=== PATIENT | female | born 1975 | race Two or more races ===

== ENCOUNTER 2017-10-02 15:37 | Emergency (ER) | payer OTHER ==
[2017-10-02 15:43] VITALS: BP 147/82; PULSE 110; RESP 18; TEMP 98.6; O2SAT 96
--- NOTE | 2017-10-02 16:14 | EDPHY ---
H & P Stated Complaint: cough 2 weeks, body aches, ROSEN, not sleeping HPI/ROS: CHIEF COMPLAINT: Cough, sore throat, myalgias HISTORY OF PRESENT ILLNESS: This is a 42-year-old female with a history of hypertension who presents with 2 weeks of nonproductive cough. She has not had fever. She reports sore throat, bilateral ear discomfort, and myalgias. She did not have a flu vaccination this year. She does not feel short of breath. She does have some back and chest discomfort when coughing. No sinus drainage. No headache at present. REVIEW OF SYSTEMS: A ten point review of systems was performed and is negative with the exception of the items mentioned in the HPI. Past medical history: Hypertension Social history: She is here with her daughter. General Appearance: Alert. Vital signs reviewed. Heart rate 110 at triage. Blood pressure 147/82. Eyes: Pupils equal and round, no conjunctival injection, no discharge. Anicteric. ENT, Mouth: Mucous membranes are moist, mild oropharyngeal erythema without edema or exudate. Tympanic membranes normal bilaterally. No sinus tenderness. Neck: No lymphadenopathy, supple. Respiratory: Lungs are clear to auscultation; no wheezes, rales, or rhonchi. Cardiovascular: Regular rate and rhythm; no murmur, rub, or gallop. Not tachycardic at time of my exam. Gastrointestinal: Abdomen is soft and nontender, no masses or organomegaly, bowel sounds normal. Skin: Warm and dry, no rashes on exposed skin, normal color. Back: Nontender to palpation over the thoracolumbar spine. No CVAT. Extremities: No lower extremity edema, no calf tenderness or swelling. Neurological: Alert and oriented. Moving all four extremities easily and equally. Psychiatric: Normal affect. - Personal History LMP (Females 10-55): 8-14 Days Ago Current Tetanus/Diphtheria Vaccine: Unsure Current Tetanus Diphtheria and Acellular Pertussis (TDAP): Unsure - Medical/Surgical History Hx Asthma: No Hx Chronic Respiratory Disease: No Hx Diabetes: No Hx Cardiac Disease: No Hx Renal Disease: No Hx Cirrhosis: No Hx Alcoholism: No Hx HIV/AIDS: No Hx Splenectomy or Spleen Trauma: No Other PMH: HTN/APPY, - Social History Smoking Status: Never smoked Constitutional: Initial Vital Signs Temperature (C) 37.0 C 10/02/17 15:39 Heart Rate 110 H 10/02/17 15:39 Respiratory Rate 18 10/02/17 15:39 Blood Pressure 147/82 H 10/02/17 15:39 O2 Sat (%) 96 10/02/17 15:39 O2 Delivery Mode Room Air Allergies/Adverse Reactions: No Known Allergies Allergy (Unverified 10/02/17 15:43) Home Medications: Medication Instructions Recorded HYDROcodone/HOMATROPINE HYCODA 1 tsp PO Q4-6PRN PRN #120 ml 10/02/17 [Hycodan Syrup (*)] Htn Medication 10/02/17 Medical Decision Making ED Course/Re-evaluation: Viral syndrome in 42-year-old female. There is not much benefit in testing for influenza as she has had this illness for 2 weeks now and antiviral medication would not be helpful. There is no role for antibiotics at this point. She has been able to work with this illness. She is primarily interested in cough control. She is given a prescription for Hycodan. She will follow up at [facility] if she is not improving. She has been advised that her blood pressure is high in the emergency department today and that it should be rechecked within the next month. Differential Diagnosis: I considered a differential diagnosis including but not limited to pneumonia, urinary tract infection, otitis media, viral syndrome, RSV, and influenza. Departure - Departure Disposition: Home, Routine, Self-Care Clinical Impression: Viral syndrome Condition: Good Instructions: Viral Syndrome (ED) Additional Instructions: Adult Pain & Fever Control: We recommend Acetaminophen (Tylenol) and Ibuprofen (Motrin,Advil) for pain and fever control. When fever is high or pain severe, both drugs can be used at the same time, but at different intervals. Please note the time differences. Your dose is: Acetaminophen [650]mg every 4 to 6 hours Ibuprofen [400]mg every [6] hours with food OR Note: do not take Acetaminophen with Hydrocodone (Vicodin, Lortab) or Oycodone (Percocet). These medications also contain Acetaminophen. No more than 3000mg of Acetaminophen should be taken in 24 hours (for an adult). Use the cough syrup for cough. It might make you sleepy. If you develop fever, shortness of breath, or if your cough does not improve within the next week or so you should be re-evaluated. Your blood pressure is a bit high in the emergency department today. Please have it rechecked within the month. Referrals: ESTRADA GAGNON,. [Primary Care Provider] - As per Instructions Prescriptions: HYDROcodone/HOMATROPINE HYCODA [Hycodan Syrup (*)] 1 tsp PO Q4-6PRN PRN #120 ml PRN Reason: cough Print Language: Icelandic
== END 2017-10-02 16:24 | disposition home or self-care (01) ==
LOC: CED 15:37
DX: B34.9 Viral infection, unspecified (principal); I10 Essential (primary) hypertension